=== PATIENT | male | born 1940 | race Caucasian/White ===

== ENCOUNTER → 2017-09-29 | Outpatient (CLI) | payer OTHER ==
[~2017-09-29] MED LIST: ASPIR-TRIN325 MG PO; ASPIRIN EC325 MG PO; CARDIZEM CD,CA240 MG PO; CARDIZEM CD180 MG PO; CELEBREX200 MG PO; CHILD ASPIRIN81 M1 PO; CIPRO500 MG PO; DOCUSATE SODIU100 MG PO; FERROUS SULFAT325 MG PO; FLAGYL500 MG PO; FLOMAX0.4 MG PO; HYDROCODON-ACE1 EAC7 PO; LOVASTATIN40 MG PO; OXYCONTIN10 MG PO; PERCOCET 5/31 TABLET PO; ZOFRAN ODT4 MG PO
== END | disposition home or self-care (01) ==
LOC: NUC 09:25
DX: M19.012 Primary osteoarthritis, left shoulder (principal); M17.12 Unilateral primary osteoarthritis, left knee; R93.7 Abnormal findings on diagnostic imaging of other parts of musculoskeletal system; Z96.651 Presence of right artificial knee joint
CPT/HCPCS: 78306; A9503